=== PATIENT | male | born 1950 | race Caucasian/White ===

== ENCOUNTER 2017-07-19 11:45 | Observation (INO) | payer MEDICARE, BC ==
[2017-07-19] VITALS (9 sets, daily range): BP systolic 134–142; BP diastolic 67–85; PULSE 65–80; TEMP 97.1–98.3
[~2017-07-19] VITALS: Ht 167.6 cm; Wt 89.6 kg
[2017-07-19] MEDS ORDERED: MUCINEX 60600 MG/TA1 PO (12:23)
[2017-07-19] MEDS ORDERED: FLOMAX 0.40.4 MG/CAP PO (12:25)
[2017-07-19] MEDS ORDERED: PRILOSEC 20MG20 MG PO (12:25)
[2017-07-19] MEDS ORDERED: PRESERVISION1 SGL PO (12:25)
[2017-07-19] MEDS ORDERED: FLONASEALLERGY NS (12:27)
[2017-07-20 02:19] VITALS: BP 138/68; PULSE 89; TEMP 100.8
[2017-07-20 06:06] VITALS: BP 126/69; PULSE 83; TEMP 100
[2017-07-20 06:16] LABS: HEMATOCRIT 40.7 % (42.0-52.0)
[2017-07-20 06:33] LABS: CALCIUM 8.8 mg/dL (8.4-10.2); CREATININE, serum 0.92 mg/dL (0.66-1.25); POTASSIUM 3.5 mmol/L (3.4-5.0)
[2017-07-20 10:03] VITALS: BP 112/58; PULSE 85; TEMP 98.9
[2017-07-20 14:49] VITALS: BP 123/67; PULSE 78; TEMP 98.5
[2017-07-20 18:21] VITALS: BP 133/64; PULSE 78; TEMP 99.3
[2017-07-20 20:36] VITALS: BP 134/67; PULSE 82; TEMP 99.9
[2017-07-21 01:52] VITALS: BP 128/71; PULSE 84; TEMP 98.2
[2017-07-21 05:17] VITALS: BP 138/74; PULSE 82; TEMP 99.2
[2017-07-21 09:50] VITALS: BP 139/69; PULSE 80; TEMP 98.8
== END 2017-07-21 13:31 | disposition home or self-care (01) ==
LOC: SDCO 11:45 → SURG 18:20 → SDCO 07-20 11:00 → SURG 07-20 11:01
PROVIDERS: Urology
DX: K40.90 Unilateral inguinal hernia, without obstruction or gangrene, not specified as recurrent (principal); K64.0 First degree hemorrhoids; K92.1 Melena; N40.1 Benign prostatic hyperplasia with lower urinary tract symptoms; N13.8 Other obstructive and reflux uropathy; N21.0 Calculus in bladder; Z88.1 Allergy status to other antibiotic agents; Z80.42 Family history of malignant neoplasm of prostate; R05 Cough; G47.33 Obstructive sleep apnea (adult) (pediatric); K21.9 Gastro-esophageal reflux disease without esophagitis; H35.30 Unspecified macular degeneration; Z86.69 Personal history of other diseases of the nervous system and sense organs; Z68.31 Body mass index [BMI] 31.0-31.9, adult; I49.5 Sick sinus syndrome; G47.30 Sleep apnea, unspecified
CPT/HCPCS: OP; A9284; C1781; G0378; J0690; J2250; J2370; J2704; J3010; J7120